=== PATIENT | male | born 1975 | race Caucasian/White ===

== ENCOUNTER 2019-06-26 15:29 | Emergency (ER) | payer OTHER ==
[2019-06-26] MEDS ORDERED: Tetracaine 0.5% OPHTH SOLN/PF 4 ML BOT ONE (15:52)
[2019-06-26] MEDS ORDERED: Fluorescein Opthalmic Strip ONE (15:52)
[2019-06-26] MEDS ORDERED: Erythromycin Base 0.5% Ophth Oint 3.5 gm Tube ONE (16:07)
[2019-06-26] MEDS ORDERED: Ibuprofen 800 MG TAB ONE (16:17)
--- NOTE | 2019-06-26 17:10 | RAD ---
Exam: Left knee 4 views: HISTORY: Injury from a fall off a horse COMPARISON: None FINDINGS: No evidence for fracture, dislocation, or other significant acute osseous abnormality. IMPRESSION: No significant acute process.
== END 2019-06-26 17:20 | disposition home or self-care (01) ==
LOC: MADERS 15:29
DX: S13.9XXA Sprain of joints and ligaments of unspecified parts of neck, initial encounter (principal); S05.01XA Injury of conjunctiva and corneal abrasion without foreign body, right eye, initial encounter; S00.01XA Abrasion of scalp, initial encounter; S00.81XA Abrasion of other part of head, initial encounter; M25.562 Pain in left knee; F41.9 Anxiety disorder, unspecified; W22.8XXA Striking against or struck by other objects, initial encounter

== ENCOUNTER 2019-12-20 15:40 | Emergency (ER) | payer OTHER ==
[~2019-12-20 15:40] MED LIST: Iopamidol 370 76% 100 ML VIAL ONE
[2019-12-20 16:00] LABS: #Basophils 0.1 thou/uL (0.0-0.2); #Eosinphils 0.2 thou/uL (0.0-0.7); #Monocytes 0.9 thou/uL (0.11-0.59); #Neutrophils 8.5 thou/uL (1.40-6.50); %Basophils 1.1 % (0.0-1.0); %Eosinophils 1.4 % (0.0-10.0); %Lymphocytes 17.1 % (21.0-51.0); %Monocytes 7.7 % (0.0-10.0); %Neutrophils 72.8 % (42.0-75.0); Hemoglobin 15.3 g/dL (14.0-18.0); Mean Corpuscular HGB CONC 33.4 g/dL (32.0-36.0); Mean Corpuscular Hemoglobin 29.1 pg (27.0-31.0); Mean Corpuscular Volume 87.2 fL (78.0-98.0); Mean Platelet Volume 7.8 fL (7.4-10.4); Platelet Count 229 thou/uL (130-400); RBC Distribution Width 11.3 % (11.5-14.5); Red Blood Cell (RBC) Count 5.25 mill/uL (4.70-6.10); White Blood Cell (WBC) Count 11.6 thou/uL (4.8-10.8)
[2019-12-20 16:04] LABS: INR-International Normal Ratio 0.9; PTT 25.1 SEC (22.9-36.1); Prothrombin Time 12.2 sec (12.0-14.7)
[2019-12-20 16:14] LABS: ALT (SGPT) 24 U/L (8-55); AST (SGOT) 23 U/L (5-34); Albumin 4.5 g/dL (3.5-5.0); Alkaline Phosphatase 57 U/L (40-110); Anion Gap 14 mmol/L (10-20); BUN (Urea Nitrogen) 18 mg/dL (8.9-20.6); Bilirubin, Total 0.7 mg/dL (0.2-1.2); Calc. Creatinine Clearance 0 mL/min (70-130); Calcium 9.2 mg/dL (7.8-10.44); Carbon Dioxide 23 mmol/L (22-29); Chloride 110 mmol/L (98-107); Estimated GFR-MDRD 75; Globulin 2.7 g/dL (2.4-3.5); Glucose 85 mg/dL (70-105); Potassium 4.5 mmol/L (3.5-5.1); Protein, Total 7.2 g/dL (6.0-8.3); Sodium 142 mmol/L (136-145)
--- NOTE | 2019-12-20 16:26 | CT ---
CT head noncontrast HISTORY: Fall. Injury. FINDINGS: There is no evidence of acute intracranial hemorrhage or infarct. The ventricles appear nor mal in size, shape and position. There is no mass effect or shift of midline structures. Mucous retention cyst partially visualized within the left maxillary sinus. IMPRESSION : No acute intracranial abnormalities are demonstrated.
--- NOTE | 2019-12-20 16:37 | CT ---
CT cervical spine noncontrast HISTORY: Fall. Neck injury. FINDINGS: Straightening of the normal lordotic curvature. Vertebral body heights and alignment are ma intained. Cervicothoracic junction is intact. No acute fracture or dislocation. Prominent osteophytosis throughout the vertebral bodies and facets. Prominent multilevel foraminal st enoses, most severe at the C3-4, C4-5, and C5-6 levels. IMPRESSION : Prominent osseous changes. No acute osseous abnormalities are demonstrated.
[2019-12-20] MEDS ORDERED: HYDROcodone/Acetaminophen 10/325 mg Tablet ONE (17:11)
[2019-12-20] MEDS ORDERED: Acetaminophen 325 MG TAB ONE (17:12)
[2019-12-20] MEDS ORDERED: Ketorolac Tromethamine 30 MG/ML VIAL ONE (17:12)
--- NOTE | 2019-12-20 17:27 | CT ---
CT OF THE CHEST WITH CONTRAST CT ABDOMEN AND PELVIS WITH CONTRAST LIMITED CTS OF THE THORACIC AND LUMBOSACRAL SPINE. 12/20/19 HISTORY: Thrown from a horse with left sided chest and abdominal pain. Back pain. TECHNIQUE: 1. Multiple contiguous axial images were obtained in a CT of the chest with contrast. Sagittal a nd coronal reformats were performed. 2. Multiple contiguous axial images were obtained in a CT of the abdomen and pelvis with contras t. Sagittal and coronal reformats were performed. 3. Limited CTs of the thoracic and lumbosacral spines were performed. Sagittal and coronal refor mats were created based off images obtained in the chest, abdomen and pelvic CTs. FINDINGS: CT CHEST: The heart is normal in size without focal cardiac abnormality. No hilar or mediastinal lymphadenopath y are seen. No pneumothorax or pleural effusions are seen. No focal infiltrates or masses are seen in the lungs. There may be a nondisplaced left lateral fifth rib fracture. The other bones of the thorax are unrema rkable. There may be a contusion of the left chest wall. The liver, gallbladder, kidneys, adrenal glands, spleen, and pancreas are unremarkable. No free air, free fluid, or stranding changes are seen in the abdomen or pelvis. No abdominal or pelvic lymphadenopathy are seen. The bones in the pelvis and abdominal wall soft tiss ues are unremarkable. LIMITED CT OF THE THORACIC AND LUMBOSACRAL SPINE: The vertebral bodies demonstrate normal height and alignment without acute fracture or subluxation. D egenerative changes are seen throughout the spine, greatest at L5-S1. IMPRESSION: 1. No evidence of acute intrathoracic abnormality. 2. Possible nondisplaced left fifth rib fracture. 3. No evidence of acute intra-abdominal/pelvic abnormality. 4. No evidence of acute osseous abnormality of the thoracic or lumbosacral spine. POS: [facility]
--- NOTE | 2019-12-20 17:40 | RAD ---
XR Humerus Lt 2 View STANDARD: 12/20/2019 5:17 PM CLINICAL INDICATION: Fall with blunt injury to the left arm COMPARISON: None. FINDINGS: Bones: No acute osseous abnormality. Joints: Joints space is preserved.. Soft Tissue: Normal.. IMPRESSION: No acute osseous abnormality..
== END 2019-12-20 17:50 | disposition home or self-care (01) ==
LOC: MADERS 15:40
DX: S22.32XA Fracture of one rib, left side, initial encounter for closed fracture (principal); S43.402A Unspecified sprain of left shoulder joint, initial encounter; F41.9 Anxiety disorder, unspecified; V80.919A Animal-rider injured in unspecified transport accident, initial encounter
CPT/HCPCS: 70450; 71260; 72125; 74177; 80053; 85025; 85610; 85730; 96374; J1885; L0120; Q9967

== ENCOUNTER 2025-04-01 13:24 | Outpatient (CLI) | payer BC ==
[2025-04-01 13:38] LABS: Glucose, Urine (Dipstick) Negative (Negative); Leukocyte Trace (Negative); Protein, Urine (Dipstick) Negative (Neg-Trace); Specific Gravity, Urine 1.020 (1.005-1.030)
[2025-04-01 13:51] LABS: RBC/HPF Greater than 50 HPF (0-3); WBC/HPF 0-3 HPF (0-3)
[2025-04-01 13:52] LABS: Mucous/LPF Few LPF (<2+)
== END 2025-04-01 13:25 | disposition home or self-care (01) ==
LOC: MADLAB 13:24
PROVIDERS: ATTEND Specialist
DX: N30.81 Other cystitis with hematuria (principal)
CPT/HCPCS: 81001; 87086